=== PATIENT | female | born 2000 | race Caucasian/White ===

== ENCOUNTER 2018-11-04 06:59 | Emergency (ER) | payer OTHER, SELFPAY ==
--- NOTE | 2018-11-04 09:27 | RAD ---
RIGHT KNEE 4 VIEWS:: Date: 11/04/18 COMPARISON: None. HISTORY: Pain. FINDINGS: No knee joint effusion, fracture, or evidence of dislocation is seen. IMPRESSION: No acute findings. POS: OFF
== END 2018-11-04 08:07 | disposition home or self-care (01) ==
LOC: ERS 06:59
DX: M25.561 Pain in right knee (principal); E03.9 Hypothyroidism, unspecified; Z79.899 Other long term (current) drug therapy